=== PATIENT | female | born 1940 | race Caucasian/White ===

== ENCOUNTER → 2016-10-23 | Outpatient (CLI) | payer MEDICARE, OTHER ==
--- NOTE | 2016-10-24 10:51 | MRI ---
EXAM DESCRIPTION: Cervical Spine w/wo Contrast CLINICAL HISTORY: 75 years, Female, MS COMPARISON: None. FINDINGS: Sagittal and axial sequences. Contrast enhanced sequences. Bone marrow signal heterogeneous but not worrisome. Degenerative type changes present particularly C5-6. Cord has several areas of increased T2 signal particularly at the level of C1-2, C3, C5 and C7 appearance compatible with multiple sclerosis plaques. Largest lesion at C3 posteriorly more on the left measuring about 0.8 x 0.5 cm sagittal cross-section. This region does not demonstrate enhancement. Lesion upper cervical spine measures 9 mm in length and about 2.5 mm front to back dimensions on the sagittal images. This lesion plus the lower two cervical cord lesions also do not demonstrate contrast enhancement. C2-3 disc unremarkable. At C3-4 minimal bulge slightly to the right. At C4-5 slight narrowing about 1.5 mm anterolisthesis with minimal bulge. Extensive narrowing C5-C6 with diffuse bulging disc osteophyte asymmetric to the left with near complete effacement of the subarachnoid space. Mild left foraminal narrowing. Mild narrowing C6-7 with bulging disc asymmetric to the left with slight flattening thecal sac and narrowing the left exit foramen. IMPRESSION: 1. Multiple areas of high T2 signal in the cord involving C1-2, C3, C5 and C7 compatible with multiple sclerosis plaques. No definite contrast enhancement in any of these lesions to suggest active demyelinating disease. 2. Moderate disc disease particularly lower cervical spine. Changes most advanced C5-6 with diffuse bulging disc osteophyte. Near complete effacement of the subarachnoid space with left foraminal narrowing. Other moderate disc changes as described above Electronically signed by: Kareem Kingston MD 10/24/2016 10:51 AM CDT
--- NOTE | 2016-10-24 21:04 | MRI ---
EXAM DESCRIPTION: Brain w/wo Contrast CLINICAL HISTORY: 75 years, Female, MS COMPARISON: July 21, 2008 FINDINGS: Standard triplanar sequences. Postcontrast sequences. Diffusion-weighted sequences manas acute infarct. Gradient sequence does not show hemorrhage. No abnormal contrast enhancement to suggest active multiple sclerosis plaques. Extensive periventricular white matter changes again noted at right angles to the corpus callosum. These are along the callosal septal location and are typical "Vaughan fingers" of multiple sclerosis. Lesions are similar but slightly progressed compared to 2008. Most extensive progression is in the left frontal parietal region and right posterior parietal region Some minimal ethmoid sinus mucosal thickening. IMPRESSION: Slight progression of findings of multiple sclerosis. 2008. White matter changes have increased slightly in the left frontal parietal region and , to lesser degree, right posterior parietal region. No abnormal contrast enhancement to suggest active MS plaque. Electronically signed by: Kareem Kingston MD 10/24/2016 9:04 PM CDT
== END | disposition home or self-care (01) ==
LOC: MRI 09:13
PROVIDERS: ATTEND Psychiatry & Neurology Neurology
DX: G35 Multiple sclerosis (principal); Z01.812 Encounter for preprocedural laboratory examination

== ENCOUNTER → 2017-04-24 | Outpatient (CLI) | payer MEDICARE, OTHER | END | disposition home or self-care (01) | LOC: LAB.O 13:57 | PROVIDERS: ATTEND Psychiatry & Neurology Neurology | DX: G35 Multiple sclerosis (principal); R53.81 Other malaise; R53.82 Chronic fatigue, unspecified; R63.3 Feeding difficulties; Z79.899 Other long term (current) drug therapy ==

== ENCOUNTER 2020-01-28 14:29 | Emergency (ER) | payer MEDICARE, OTHER ==
[2020-01-28 15:04] VITALS: TEMP 97.6; O2SAT 94
--- NOTE | 2020-01-28 16:25 | ED.PDOC ---
History of Present Illness - General Chief Complaint: Problem Stated Complaint: Vaginal bleeding x 1 day Time Seen by Provider: 01/28/20 14:55 Source: patient, RN notes reviewed, Vital Signs reviewed, family Exam Limitations: no limitations - History of Present Illness Initial Comments: Patient is a 79-year-old white female who presents with complaints of vaginal bleeding x1 day. Patient came to the hospital for an outpatient ultrasound and was done with the ultrasound when she checked her self in the ED due to the significant vaginal bleeding. Patient complains of lower abdominal pain, crampy in nature, moderate in intensity, waxing and waning. The associated vaginal bleeding is heavy she says. Patient went through menopause years ago she said. Patient denies any other symptoms such as headache, dizziness, palpitations, chest pain or shortness of breath. Timing/Duration: yesterday Quality: moderate, cramping, waxing/waning Onset Location: vaginal Radiation: none Activites at Onset: none Prior abdominal problems: none Sexual intercourse history: not active Improving Factors: nothing Worsening Factors: movement Associated Symptoms: abdominal pain Allergies/Adverse Reactions: Allergies Sulfa Antibiotics Allergy (Severe, Verified 01/28/20 15:05) Other "kidney damage" Home Medications: Ambulatory Orders Bisoprolol & Hydrochlorothiazi [Ziac] 1 tab PO DAILY 07/25/14 Ramipril [Altace] 5 mg PO DAILY 07/25/14 Review of Systems - Review of Systems Constitutional: States: no symptoms reported, see HPI. Denies: chills, fever, malaise, weakness EENTM: States: no symptoms reported. Denies: eye pain, blurred vision, double vision Respiratory: States: no symptoms reported. Denies: cough, short of breath, stridor, wheezing Cardiology: Denies: no symptoms reported, chest pain, palpitations, syncope Gastrointestinal/Abdominal: States: see HPI, abdominal pain. Denies: diarrhea, nausea, vomiting Genitourinary: States: see HPI, other - vaginal bleeding Musculoskeletal: Denies: back pain, joint pain, joint swelling, neck pain Skin: States: no symptoms reported. Denies: change in color, rash Neurological: States: no symptoms reported. Denies: tingling, tremors, weakness Endocrine: States: no symptoms reported Hematologic/Lymphatic: States: no symptoms reported All other Systems: No Change from Baseline Past Medical History (General) - Patient Medical History Hx Seizures: No Hx Stroke: No Hx Dementia: No Hx Asthma: No Hx of COPD: No Hx Cardiac Disorders: No Hx Congestive Heart Failure: No Hx Pacemaker: No Hx Hypertension: Yes Hx Thyroid Disease: No Hx Diabetes: No Hx Gastroesophageal Reflux: No Hx Renal Disease: No Hx Cancer: No Hx of HIV: No Hx Hepatitis C: No Hx MRSA: No - Vaccination History Hx Tetanus, Diphtheria Vaccination: No Hx Influenza Vaccination: No Hx Pneumococcal Vaccination: No - Social History Hx Tobacco Use: No Hx Chewing Tobacco Use: No Hx Alcohol Use: No Hx Substance Use: No Hx Substance Use Treatment: No Hx Depression: No Hx Physical Abuse: No Hx Emotional Abuse: No Hx Suspected Abuse: No - Female History Patient is a Female of Child Bearing Age (10 -59 yrs old): No Patient : No Family Medical History - Family History Mother Family History: Unknown Living Status: Physical Exam - Physical Exam General Appearance: Alert, Comfortable, Well Developed, Well Groomed, Well Hydrated, Well Nourished Eyes, Ears, Nose, Throat Exam: PERRL/EOMI, normal ENT inspection, pharynx normal Neck: non-tender, full range of motion, supple, normal inspection Cardiovascular/Respiratory: regular rate, rhythm, no M/R/G, normal peripheral pulses, no JVD, normal breath sounds, no respiratory distress Gastrointestinal/Abdominal: normal bowel sounds, soft, tenderness - suprapubically Pelvic Exam: other - deferred at pt request. Back Exam: normal inspection, no CVA tenderness, no vertebral tenderness Extremity: normal range of motion, non-tender, normal inspection Neurologic: case aide II-XII nml as tested, no motor/sensory deficits, alert, normal mood/affect, oriented x 3 Skin Exam: normal color, warm/dry Lymphatic: no adenopathy Progress - Progress Progress: Differential diagnosis: Dysfunctional uterine bleeding, uterine cancer, hematuria, kidney stone among others. 01/28/20 17:14 Vaginal bleeding has improved. CT scan shows mass in the lower pelvis. Ultrasound is also been performed. I have discussed plan of care with Dr. Ms. Tirado who agrees and will see the patient next week. I discussed this plan of care with the patient and her family and they voiced understanding and agreement with the plan of care. Plan on discharge home at this time. Robbin Mandel M.D. #[id number] - Results/Orders Results/Orders: EXAM DESCRIPTION: Pelvic,Non-OB: Ultrasound. CLINICAL HISTORY: 79 years Female POSTMENOPAUSAL BLEEDING COMPARISON: None. TECHNIQUE: Transcutaneous scanning through the urine filled bladder. Womack-scale and Doppler modes. Endovaginal scanning was not performed due to patient demonstrating active bleeding from the vaginal labial region. FINDINGS: Uterus 10.2 x 4.6 cm. Endometrium not demonstrated.. Myometrium heterogeneous. Uterus not retroverted. Cervix not well seen. Cul-de-sac: No stones.. Ovaries were not seen. No adnexal mass or fluid. Irregular heterogeneous mass with vascularity in the base of the urinary bladder. Dimensions of the mass approximately 5.5 x 3.6 cm in the sagittal plane and 4.8 cm in the transverse plane. The posterior inferior wall of the urinary bladder is not well seen. Bilateral kidneys demonstrate cortical atrophy with normal cortical signal but no hydronephrosis and proximal ureters are not seen. IMPRESSION: 1. Uterus is not retroverted. Endometrium is not seen. Slightly enlarged for patient's age. No fluid in the cul-de-sac. Ovaries were not seen with no adnexal mass or fluid. 2. 5.5 cm mass in the inferior bladder abutting the posterior inferior anterior wall. Bladder margins are not well-defined and bladder wall invasion by malignant mass cannot be excluded. No hydronephrosis in the kidneys. CRITICAL COMMUNICATION: The critical value was communicated directly by Dr. Pulido via phone call, with Dr. Juancarlos Tracy, at approximately 1410 hours, on January 28, 2020. Electronically signed by: Dario Pulido MD 01/28/2020 3:09 PM CDT 01/28/20 15:35 Abdomen/Pelvis w/Contrast [CT] Stat 01/28/20 15:38 Hold Metformin x 48Hrs [id number] Laboratory Results - last 24 hr 01/28/20 01/28/20 14:50 14:50 WBC 18.4 H RBC 4.76 Hgb 14.5 Hct 41.9 MCV 88.1 MCH 30.5 MCHC 34.6 RDW 13.5 Plt Count 169 MPV 9.8 Absolute Neuts (auto) 16.60 H Absolute Lymphs (auto) 0.50 L Absolute Monos (auto) 1.30 H Absolute Eos (auto) 0.00 Absolute Basos (auto) 0.00 Neutrophils % 90.3 H Lymphocytes % 2.6 L Monocytes % 6.9 Eosinophils % 0.0 L Basophils % 0.2 Sodium 140 Potassium 3.9 Chloride 102 Carbon Dioxide 28 Anion Gap 13.9 BUN 26 H Creatinine 1.02 BUN/Creatinine Ratio 25.5 H Random Glucose 122 H Serum Osmolality 285.5 Calcium 9.3 Total Bilirubin 0.9 AST 23 ALT 15 Alkaline Phosphatase 75 Serum Total Protein 7.3 Albumin 3.9 Globulin 3.4 Albumin/Globulin Ratio 1.1 EXAM DESCRIPTION: Abdomen/Pelvis w/Contrast CLINICAL HISTORY: vaginal bleeding and lower abdomen pain. COMPARISON: Pelvic ultrasound earlier same day TECHNIQUE: CT of the abdomen and pelvis was performed following intravenous contrast. Multiple axial images and multiplanar reconstructions were generated. This exam was performed according to our departmental dose-optimization program, which includes automated exposure control, adjustment of the mA and/or kV according to patient size and/or use of iterative reconstruction technique. FINDINGS: Lung bases: Very mild groundglass opacities in the visualized lingula and left lower lobe. Solid organs: Cholelithiasis. The liver, spleen, pancreas, and adrenal glands are unremarkable. Very mild bilateral hydronephrosis and hydroureter. Gastrointestinal: Colonic diverticulosis without CT evidence for diverticulitis. Large volume of stool in the rectal vault. The stomach and small intestine are unremarkable. The appendix is normal. No free fluid or free air. Vascular: Moderate atherosclerotic plaque in the abdominal aorta and its major branches. Lymph nodes: No pathologically enlarged lymph nodes are present by CT size criteria. Musculoskeletal and soft tissues: Multilevel lumbar disc degeneration, most advanced at L5-S1. Osteopenia. Urinary bladder and pelvic organs: Lobulated soft tissue mass in the inferior posterior aspect of the urinary bladder measuring up to 4.0 x 3.1 cm. There may be multifocal separate areas of lateral wall thickening present. Irregular contour of the uterus, better characterized on recent pelvic ultrasound. IMPRESSION: 1. Soft tissue mass in the posterior aspect of the urinary bladder with several additional areas of focal wall thickening. The findings are highly suspicious for bladder neoplasm. Recommend correlation with direct inspection and tissue sampling. 2. Mild bilateral hydroureter secondary to the mass in the posterior bladder near the ureterovesical junctions. 3. Irregular contour of the uterus, likely secondary to fibroids. Correlate with same-day pelvic ultrasound findings. 4. Groundglass opacities in the lingula and left lower lobe. These are nonspecific but favored to represent atelectasis. An atypical infectious/inflammatory process may have a similar appearance. 5. Colonic diverticulosis. 6. Large volume of stool in the rectal vault. 7. Other findings as above. Electronically signed by: Rick Wagner MD 01/28/2020 5:05 PM CDT Departure - Departure Clinical Impression: Dysfunctional uterine bleeding, Pelvic mass Anemia Qualifiers: Anemia type: unspecified type Qualified Code(s): D64.9 - Anemia, unspecified Leukocytosis Qualifiers: Leukocytosis type: unspecified Qualified Code(s): D72.829 - Elevated white blood cell count, unspecified Time of Disposition: 17:25 Disposition: Discharge to Home or Self Care Condition: Good Departure Forms: ED Discharge - Pt. Copy, Patient Portal Self Enrollment Instructions: Acute Pelvic Pain (DC), Acute Abdomen (Belly Pain), Adult (DC) Diet: resume usual diet Activity: increase activity as tolerated Referrals: Juancarlos Corea MD [Primary Care Provider] - 1-5 Days Home Medications: Ambulatory Orders Bisoprolol & Hydrochlorothiazi [Ziac] 1 tab PO DAILY 07/25/14 Ramipril [Altace] 5 mg PO DAILY 07/25/14
--- NOTE | 2020-01-28 17:07 | CT ---
EXAM DESCRIPTION: Abdomen/Pelvis w/Contrast CLINICAL HISTORY: vaginal bleeding and lower abdomen pain. COMPARISON: Pelvic ultrasound earlier same day TECHNIQUE: CT of the abdomen and pelvis was performed following intravenous contrast. Multiple axial images and multiplanar reconstructions were generated. This exam was performed according to our departmental dose-optimization program, which includes automated exposure control, adjustment of the mA and/or kV according to patient size and/or use of iterative reconstruction technique. FINDINGS: Lung bases: Very mild groundglass opacities in the visualized lingula and left lower lobe. Solid organs: Cholelithiasis. The liver, spleen, pancreas, and adrenal glands are unremarkable. Very mild bilateral hydronephrosis and hydroureter. Gastrointestinal: Colonic diverticulosis without CT evidence for diverticulitis. Large volume of stool in the rectal vault. The stomach and small intestine are unremarkable. The appendix is normal. No free fluid or free air. Vascular: Moderate atherosclerotic plaque in the abdominal aorta and its major branches. Lymph nodes: No pathologically enlarged lymph nodes are present by CT size criteria. Musculoskeletal and soft tissues: Multilevel lumbar disc degeneration, most advanced at L5-S1. Osteopenia. Urinary bladder and pelvic organs: Lobulated soft tissue mass in the inferior posterior aspect of the urinary bladder measuring up to 4.0 x 3.1 cm. There may be multifocal separate areas of lateral wall thickening present. Irregular contour of the uterus, better characterized on recent pelvic ultrasound. IMPRESSION: 1. Soft tissue mass in the posterior aspect of the urinary bladder with several additional areas of focal wall thickening. The findings are highly suspicious for bladder neoplasm. Recommend correlation with direct inspection and tissue sampling. 2. Mild bilateral hydroureter secondary to the mass in the posterior bladder near the ureterovesical junctions. 3. Irregular contour of the uterus, likely secondary to fibroids. Correlate with same-day pelvic ultrasound findings. 4. Groundglass opacities in the lingula and left lower lobe. These are nonspecific but favored to represent atelectasis. An atypical infectious/inflammatory process may have a similar appearance. 5. Colonic diverticulosis. 6. Large volume of stool in the rectal vault. 7. Other findings as above. Electronically signed by: Rick Wagner MD 01/28/2020 5:05 PM CDT
[2020-01-28 17:48] VITALS: BP 141/88
== END 2020-01-28 17:30 | disposition home or self-care (01) ==
LOC: ER 14:29
DX: N93.8 Other specified abnormal uterine and vaginal bleeding (principal); D64.9 Anemia, unspecified; D72.829 Elevated white blood cell count, unspecified; R19.09 Other intra-abdominal and pelvic swelling, mass and lump; N13.4 Hydroureter; R10.2 Pelvic and perineal pain; I10 Essential (primary) hypertension; Z79.899 Other long term (current) drug therapy; Z88.2 Allergy status to sulfonamides